=== PATIENT | male | born 1980 | race Caucasian/White ===

== ENCOUNTER 2019-07-17 19:45 | Emergency (ER) | payer OTHER ==
[~2019-07-17] VITALS: Ht 182.9 cm; Wt 78.5 kg
[~2019-07-17 19:45] MED LIST: CEPH500 PO; DOCU100 PO; ENOX40I SC; HYDR1TAB94 PO; PAIN; ZOLP10 PO
[2019-07-17] MEDS ORDERED: CYCL10 PO (21:46)
[2019-07-17] MEDS ORDERED: IBUP600 PO (21:46)
== END 2019-07-17 22:08 | disposition home or self-care (01) ==
LOC: ER 19:45
DX: M54.6 Pain in thoracic spine (principal); G82.20 Paraplegia, unspecified; V49.40XA Driver injured in collision with unspecified motor vehicles in traffic accident, initial encounter; Z79.899 Other long term (current) drug therapy; Z87.891 Personal history of nicotine dependence
CPT/HCPCS: 72125; 72128; 99284-25

== ENCOUNTER 2023-04-28 14:56 | Emergency (ER) | payer OTHER ==
[~2023-04-28] VITALS: Ht 177.8 cm; Wt 72.6 kg
[~2023-04-28 14:56] MED LIST changes: +CYCL10 PO; +IBUP600 PO
[2023-04-28 15:03] VITALS: BP 129/96
[2023-04-28] MEDS ORDERED: CHLORHEXIDINE TOP (15:38)
== END 2023-04-28 15:47 | disposition home or self-care (01) ==
LOC: ER 14:56
DX: S31.811A Laceration without foreign body of right buttock, initial encounter (principal); L89.152 Pressure ulcer of sacral region, stage 2; G82.20 Paraplegia, unspecified; Z87.891 Personal history of nicotine dependence; W19.XXXA Unspecified fall, initial encounter
CPT/HCPCS: 99283